=== PATIENT | female | born 1995 | race Two or more races ===

== ENCOUNTER 2023-12-13 11:29 | Emergency (ER) | payer MEDICAID ==
[~2023-12-13] VITALS: Ht 154.9 cm; Wt 79.0 kg
[2023-12-13 13:12] LABS: Urine Bacteria FEW /hpf (None Seen); Urine Blood 2+ /uL (Negative); Urine Clarity Turbid (Clear); Urine Color Light-Yellow (Yellow); Urine Mucus FEW (None Seen); Urine Protein, UAD TRACE (Negative); Urine Specific Gravity 1.023 (1.001-1.035); Urine Urobilinogen Normal (Negative); Urine WBC 22 /hpf (0 - 5)
[2023-12-13] MEDS ORDERED: CIPR-173 PO (13:26)
[2023-12-13 14:15] VITALS: BP 132/72; PULSE 60; RESP 17; TEMP 98.2; O2SAT 94
== END 2023-12-13 14:16 | disposition home or self-care (01) ==
LOC: ER 11:29
DX: M25.512 Pain in left shoulder (principal); M79.18 Myalgia, other site; N39.0 Urinary tract infection, site not specified; F12.10 Cannabis abuse, uncomplicated
CPT/HCPCS: 71046; 81001

== ENCOUNTER 2024-02-25 14:33 | Emergency (ER) | payer SELFPAY ==
[~2024-02-25] VITALS: Ht 152.4 cm; Wt 75.5 kg
[~2024-02-25 14:33] MED LIST: CIPR-173 PO
[2024-02-25 15:39] VITALS: BP 124/80; PULSE 100; RESP 18; TEMP 98.9; O2SAT 96
[2024-02-25] MEDS ORDERED: AUG875T PO (15:57)
[2024-02-25] MEDS ORDERED: IBUP1TAB5 PO (15:58)
== END 2024-02-25 15:50 | disposition home or self-care (01) ==
LOC: ER 14:33
DX: S71.111A Laceration without foreign body, right thigh, initial encounter (principal); Z90.49 Acquired absence of other specified parts of digestive tract; Z79.899 Other long term (current) drug therapy; W54.0XXA Bitten by dog, initial encounter; Y93.01 Activity, walking, marching and hiking; Y92.89 Other specified places as the place of occurrence of the external cause; Y99.8 Other external cause status
CPT/HCPCS: 12002

== ENCOUNTER 2024-03-07 16:13 | Emergency (ER) | payer SELFPAY ==
[~2024-03-07] VITALS: Ht 177.8 cm; Wt 77.6 kg
[~2024-03-07 16:13] MED LIST changes: +AUG875T PO; +IBUP1TAB5 PO
[2024-03-07 16:42] VITALS: BP 128/70; PULSE 77; RESP 20; O2SAT 99
== END 2024-03-07 17:40 | disposition home or self-care (01) ==
LOC: ER 16:13
DX: Z48.02 Encounter for removal of sutures (principal); Z90.49 Acquired absence of other specified parts of digestive tract; Z79.899 Other long term (current) drug therapy